=== PATIENT | female | born 1965 ===

== ENCOUNTER 2018-07-20 12:13 | Emergency (ER) | payer OTHER, SELFPAY ==
[2018-07-20 12:19] VITALS: BP 125/75; PULSE 63; RESP 17; TEMP 98.1; O2SAT 99
[2018-07-20] MEDS ORDERED: Sodium Chloride 0.9% 1,000 ML IV STA (12:37)
--- NOTE | 2018-07-20 12:41 | ED PDOC ---
HPI: Female Pain Time Seen by Provider: 07/20/18 12:37 Chief Complaint (Nursing): Female Genitourinary Chief Complaint (Provider): BACK PAIN/ABDOMINAL PAIN History Per: Patient (53 Y/O FEMALE HERE WITH ONGOING LEFT FLANK PAIN RADIATING TO LEFT SIDE LOWER ABDOMEN X 3 WEEKS. NOTES ADDITIONAL SYMPTOMS RIGHT FLANK. DENIES ANY DYSURIA/HEMATURIA/FEVERS/CHILLS.) Past Medical History Reviewed: Historical Data, Nursing Documentation, Vital Signs Vital Signs: Last Vital Signs Temp 98.1 F 07/20/18 12:18 Pulse 63 07/20/18 12:18 Resp 17 07/20/18 12:18 BP 125/75 07/20/18 12:18 Pulse Ox 99 07/20/18 12:18 - Family History Family History: States: No Known Family Hx - Home Medications Home Medications: Ambulatory Orders Medication Instructions Recorded Famotidine [Pepcid] 20 mg PO BID #10 tab 07/20/18 - Allergies Allergies/Adverse Reactions: Allergies Allergy/AdvReac Type Severity Reaction Status Date / Time No Known Allergies Allergy Verified 07/20/18 12:19 Review of Systems ROS Statement: Except As Marked, All Systems Reviewed And Found Negative Gastrointestinal: Positive for: Abdominal Pain Musculoskeletal: Positive for: Back Pain Physical Exam - Reviewed Nursing Documentation Reviewed: Yes Vital Signs Reviewed: Yes - Physical Exam Appears: Positive for: Well, Non-toxic, No Acute Distress Head Exam: Positive for: ATRAUMATIC, NORMAL INSPECTION, NORMOCEPHALIC Skin: Positive for: Normal Color, Warm, DRY Eye Exam: Positive for: EOMI, Normal appearance, PERRL ENT: Positive for: Normal ENT Inspection Neck: Positive for: Normal, Painless ROM Cardiovascular/Chest: Positive for: Regular Rate, Rhythm Respiratory: Positive for: CNT, Normal Breath Sounds Gastrointestinal/Abdominal: Positive for: Normal Exam, Soft, Tenderness (LEFT FLANK/LUQ TENDERNESS. RIGHT UPPER/RIGHT FLANK TENDERNESS.) Back: Positive for: Normal Inspection. Negative for: L CVA Tenderness, R CVA Tenderness Extremity: Positive for: Normal ROM Neurologic/Psych: Positive for: Alert, Oriented - Laboratory Results Result Diagrams: 07/20/18 12:45 07/20/18 12:45 - ECG O2 Sat by Pulse Oximetry: 99 - Progress ED Course And Treament: TORADOL 15MG IV X 1 DOSE NS [address] ABD/PELVIS: IMPRESSION: 1. No radiodense urolithiasis, perinephric fluid collection or obstructive uropathy is appreciate bilaterally. The bilateral ureters appear normal caliber overall. A duplex right renal collecting system is suggested. 2. Otherwise unremarkable abdomen pelvis CT examination with no definite acute f indings. If clinical concern remains then follow-up CT with oral and intravenous contrast is recommended. us pelvic IMPRESSION: Thickened heterogeneous endometrium. Endometrial mass/polyp 0.9 x 1.3 cm. Follow-up strongly recommended. Disposition - Clinical Impression Clinical Impression: Back pain, Abdominal pain - Patient ED Disposition Is Patient to be Admitted: No - Disposition Referrals: [facility] [Outside] [facility] [Outside] Disposition: Routine/Home Disposition Time: 14:16 Condition: FAIR Additional Instructions: DANNY GINA MELANIE CON GYNECOLOGICO PARA CHEQUAR MAS PROFUNDO Prescriptions: Famotidine [Pepcid] 20 mg PO BID #10 tab Instructions: Acute Abdomen (Belly Pain) Forms: [facility] ED School/Work Excuse Print Language: TURKMEN
--- NOTE | 2018-07-20 13:37 | CT ---
Date of service: 07/20/2018 PROCEDURE: CT Abdomen and Pelvis without intravenous contrast HISTORY: R/O RENAL STONE COMPARISON: None. TECHNIQUE: Helical CT of the abdomen and pelvis was performed without oral or intravenous contrast as per referring physician request. Coronal and sagittal reformats were generated.. Contrast dose: None Radiation dose: Total exam DLP = 441.57 mGy-cm. This CT exam was performed using one or more of the following dose reduction techniques: Automated exposure control, adjustment of the mA and/or kV according to patient size, and/or use of iterative reconstruction technique. FINDINGS: LOWER THORAX: Mild cardiomegaly. Limited bilateral basilar subsegmental atelectasis appreciated. Small hiatal hernia. LIVER: Unremarkable. No gross lesion or ductal dilatation. GALLBLADDER AND BILE DUCTS: Unremarkable. PANCREAS: Unremarkable. No gross lesion or ductal dilatation. SPLEEN: Unremarkable. ADRENALS: Unremarkable. No mass. KIDNEYS AND URETERS: Likely duplex right renal collecting system no hydronephrosis. No solid mass. VASCULATURE: Unremarkable. No aortic aneurysm. No aortic atherosclerotic calcification or mural plaque present. BOWEL: Unremarkable. No obstruction. No gross mural thickening. APPENDIX: Nonacute appendix with small appendecolith identified at the mid segment. PERITONEUM: Unremarkable. No free fluid. No free air. LYMPH NODES: Unremarkable. No enlarged lymph nodes. BLADDER: Unremarkable. REPRODUCTIVE: Unremarkable. BONES: No acute fracture. OTHER FINDINGS: None. IMPRESSION: 1. No radiodense urolithiasis, perinephric fluid collection or obstructive uropathy is appreciate bilaterally. The bilateral ureters appear normal caliber overall. A duplex right renal collecting system is suggested. 2. Otherwise unremarkable abdomen pelvis CT examination with no definite acute findings. If clinical concern remains then follow-up CT with oral and intravenous contrast is recommended.
[2018-07-20 13:41] LABS: SQUAMOUS EPITHIAL 1 /hpf (0-5); URINE BACTERIA RARE (<OCC); URINE BILIRUBIN NEGATIVE (NEGATIVE); URINE BLOOD NEGATIVE (NEGATIVE); URINE CLARITY CLEAR (Clear); URINE COLOR YELLOW (YELLOW); URINE GLUCOSE (UA) NEG (NEGATIVE); URINE LEUKOCYTE ESTERASE SMALL Leu/uL (Negative); URINE PROTEIN NEGATIVE (NEGATIVE); URINE UROBILINOGEN 0.2-1.0 mg/dL (0.2-1.0)
[2018-07-20 13:47] LABS: BASO % 0.5 % (0.0-2.0); EOS # 0.2 K/uL (0.0-0.7); EOS % 2.6 % (0.0-4.0); HEMOGLOBIN 14.8 g/dL (12.0-16.0); MEAN CELL VOLUME 86.3 fl (81.0-99.0); MEAN CORPUSCULAR HEMOGLOBIN 29.4 pg (27.0-31.0); MEAN PLATELET VOLUME 9.4 fl (7.2-11.7); MONO # 0.7 K/uL (0.0-0.8); MONO % 8.4 % (0.0-10.0); NEUT # 4.4 K/uL (1.8-7.0); NEUT % 52.5 % (50.0-75.0); NRBC % 0.3 % (0.0-0.0); RBC 5.02 Mil/uL (3.80-5.20); RED CELL DISTRIBUTION WIDTH 13.6 % (11.5-14.5); WHITE BLOOD COUNT 8.4 K/uL (4.8-10.8)
[2018-07-20 13:50] LABS: ALB/GLOB RATIO 1.2 (1.0-2.1); ALBUMIN 4.6 g/dL (3.5-5.0); BLOOD UREA NITROGEN 15 mg/dl (7-17); CALCIUM 9.7 mg/dL (8.4-10.2); GFR NON-AFRICAN AMERICAN > 60; LIPASE 32 U/L (23-300)
[2018-07-20 13:53] LABS: ALT/SGPT 36 U/L (9-52); AST/SGOT 32 U/L (14-36)
--- NOTE | 2018-07-20 17:04 | US ---
Date of service: 07/20/2018 HISTORY: Lower abdominal pain. Menstrual status: Postmenopausal 4 years COMPARISON: None available. TECHNIQUE: Transvaginal only. Real -time technique with 2D, duplex and color Doppler FINDINGS: UTERUS: Measures 3.5 x 4.7 x 6.2 cm. Normal in size and appearance. No fibroid or other mass lesion seen. ENDOMETRIUM: Measures 16.0 mm in diameter. Marked endometrial hypertrophy. Well-circumscribed focal hyperechoic mass 1.3 x 0.9 cm likely endometrial polyp. CERVIX: No cervical abnormality identified. RIGHT OVARY: Measures 1.1 x 1.5 x 2.1 cm. No solid mass. Normal flow. LEFT OVARY: Measures 0.5 x 1.3 x 1.4 cm. No solid mass. Normal flow. FREE FLUID: No significant free fluid noted. OTHER FINDINGS: None. IMPRESSION: Thickened heterogeneous endometrium. Endometrial mass/polyp 0.9 x 1.3 cm. Follow-up strongly recommended.
== END 2018-07-20 17:32 | disposition home or self-care (01) ==
LOC: H.ER 12:13
DX: R10.9 Unspecified abdominal pain (principal); M54.9 Dorsalgia, unspecified; Z78.0 Asymptomatic menopausal state
CPT/HCPCS: 74176; 76830; 80053; 81003; 83690; 85025; 87086; 96374; 99285; J1885; J7030

== ENCOUNTER 2018-09-23 09:25 | Emergency (ER) | payer SELFPAY ==
[2018-09-23 09:29] VITALS: BP 109/77; PULSE 91; RESP 20; TEMP 98.3; O2SAT 99; BMI 27.9
[2018-09-23] MEDS ORDERED: Sodium Chloride 0.9% 1,000 ML IV STA ×2 (09:56→09:59)
--- NOTE | 2018-09-23 10:05 | ED PDOC ---
HPI: Abdomen Chief Complaint (Provider): Epigastric pain with vomiting History Per: Patient History/Exam Limitations: no limitations Onset/Duration Of Symptoms: Hrs (Since last night) Outside of [place] travel?: No Current Symptoms Are (Timing): Still Present Pain Scale Rating Of: 8 Location Of Pain/Discomfort: Epigastric Quality Of Discomfort: Sharp Associated Symptoms: Chills, Nausea, Vomiting, Diarrhea, Loss Of Appetite. denies: Fever, Chest Pain, Urinary Symptoms Exacerbating Factors: None Alleviating Factors: None Last Bowel Movement: Today (Diarrhea - non bloody) Additional Complaint(s): 53 yo female with history of Lupus and H.Pylori presents to the ED because of epigastric pain. Epigastric pain began last night, is non-radiating and described as sharp and constant, 8/10. Associated with 3 episodes of NBNB vomitus, few episodes of non-bloody diarrhea and chills. Sick contact at home, child with diarrhea. Last meal was yesterday at 2 pm and it was white rice with chicken cooked at home. Denies fevers, dysuria, frequency, urgency, chest pain or shortness of breath. LMP: 4 years ago. Of note, patient was started on H.Pylori regimen of Amoxicillin, clarithromycin, and omeprazole last Friday. Denies alcohol use. PMD: [facility]. Social history: Denies smoking history, illicit drug use and alcohol use. Family history: Non-contributory Medical history: Lupus, Gastritis Medications: Amoxicillin, Clarithromycin, omeprazole Abnormal Vaginal Bleeding: No <Jerilyn Coles - Last Filed: 09/23/18 11:36> <Kerri Rock - Last Filed: 09/25/18 12:46> Time Seen by Provider: 09/23/18 09:39 Chief Complaint (Nursing): GI Problem Supervising Attending Note - Supervising Attending Note The Documented history was done by the: Physician Dry Plasterer The documented physical exam was done by the: Physician Dry Plasterer The documented procedures were done by the: Physician Dry Plasterer - Attestation: I have personally seen and examined this patient.: Yes I have fully participated in the care of the patient.: Yes I have reviewed all pertinent clinical information: Yes - Notes: Notes:: Agree with diagnosis and treatment plan. I personally discussed the lab findings and the need for follow up with PMD. <Kerri Rock - Last Filed: 09/25/18 12:46> Past Medical History Vital Signs: Last Vital Signs Temp 98.3 F 09/23/18 09:26 Pulse 91 H 09/23/18 09:26 Resp 20 09/23/18 09:26 BP 109/77 09/23/18 09:26 Pulse Ox 99 09/23/18 09:26 Primary Care Provider: Mike Deleon - Surgical History Surgical History: No Surg Hx - Family History Family History: States: Unknown Family Hx - Living Arrangements Living Arrangements: With Family - Social History Current smoker - smoking cessation education provided: No Ex-Smoker (has not smoked in the last 12 months): No Alcohol: None Drugs: Denies <Jerilyn Coles - Last Filed: 09/23/18 11:36> Vital Signs: Last Vital Signs Temp 98.3 F 09/23/18 09:26 Pulse 91 H 09/23/18 09:26 Resp 20 09/23/18 09:26 BP 109/77 09/23/18 09:26 Pulse Ox 99 09/23/18 11:39 <Kerri Rock - Last Filed: 09/25/18 12:46> - Home Medications Home Medications: Ambulatory Orders Medication Instructions Recorded Famotidine [Pepcid] 20 mg PO BID #10 tab 07/20/18 Famotidine 10 mg PO DAILY #30 tablet 09/23/18 Ondansetron ODT [Zofran ODT] 4 mg PO Q6 PRN #40 odt 09/23/18 - Allergies Allergies/Adverse Reactions: Allergies Allergy/AdvReac Type Severity Reaction Status Date / Time No Known Allergies Allergy Verified 07/20/18 12:19 Review of Systems Constitutional: Positive for: Chills. Negative for: Fever, Sweats Cardiovascular: Negative for: Chest Pain, Palpitations Respiratory: Negative for: Cough, SOB with Exertion Gastrointestinal: Positive for: Nausea, Vomiting, Abdominal Pain, Diarrhea Genitourinary Female: Negative for: Dysuria, Frequency <Jerilyn Coles - Last Filed: 09/23/18 11:36> Physical Exam - Reviewed Vital Signs Reviewed: Yes - Physical Exam Appears: Positive for: Uncomfortable Head Exam: Positive for: NORMAL INSPECTION Skin: Positive for: Normal Color, Warm, Dry ENT: Positive for: Other (Moist mucus membranes) Cardiovascular/Chest: Positive for: Regular Rate, Rhythm (S1 and S2 appreciated on exam.) Respiratory: Positive for: Normal Breath Sounds. Negative for: Decreased Breath Sounds, Accessory Muscle Use, Crackles, Rales, Rhonchi, Stridor, Wheezing, Respiratory Distress Gastrointestinal/Abdominal: Positive for: Bowel Sounds (Hypoactive bowel sounds), Soft (Pannus present), Tenderness (Epigastric tenderness). Negative for: Rebound Extremity: Negative for: Tenderness, Pedal Edema, Calf Tenderness, Swelling Neurological/Psych: Positive for: Awake, Alert <Jerilyn Coles - Last Filed: 09/23/18 11:36> - Laboratory Results Result Diagrams: 09/23/18 10:20 09/23/18 10:20 - ECG O2 Sat by Pulse Oximetry: 99 - Progress ED Course And Treament: 53 yo female with history of Lupus and H.Pylori presents to the ED because of epigastric pain associated with vomiting and diarrhea with one sick contact at home. Differential: Viral gastroenteritis vs. gastritis Plan: -- CBC -- CMP -- Zofran for nausea -- GI cocktail: Viscous lidocaine, Protonix and Famotidine -- 1 L bolus of NS x2 -- Patient reassessed @ 11:30am Improved- reports last episode of vomitus was prior to IV insertion. Reports improvement in Epigastric pain Re-evaluation Time: 11:36 Condition: Re-examined, Improved (Patient reports improvement and last episode of vomitus was prior to insertion of IV. ) <Jerilyn Coles - Last Filed: 09/23/18 11:36> - Laboratory Results Result Diagrams: 09/23/18 10:20 09/23/18 10:20 Lab Results: Total Bilirubin 0.6 mg/dl (0.2-1.3) 09/23/18 10:20 AST 39 U/L (14-36) H D 09/23/18 10:20 ALT 41 U/L (9-52) 09/23/18 10:20 Alkaline Phosphatase 96 U/L (38-126) 09/23/18 10:20 Total Protein 9.2 G/DL (6.3-8.2) H 09/23/18 10:20 Albumin 5.1 g/dL (3.5-5.0) H 09/23/18 10:20 Globulin 4.1 gm/dL (2.2-3.9) H 09/23/18 10:20 Albumin/Globulin Ratio 1.2 (1.0-2.1) 09/23/18 10:20 <Kerri Rock - Last Filed: 09/25/18 12:46> Disposition - Patient ED Disposition Is Patient to be Admitted: No Doctor Will See Patient In The: Office - Disposition Disposition: Routine/Home Disposition Time: 11:37 <Jerilyn Coles - Last Filed: 09/23/18 11:36> <Kerri Rock - Last Filed: 09/25/18 12:46> - Clinical Impression Clinical Impression: Gastroenteritis, Gastroenteritis - Disposition Referrals: Mike Salinas MD [Staff Provider] - Condition: IMPROVED Prescriptions: Famotidine 10 mg PO DAILY #30 tablet Ondansetron ODT [Zofran ODT] 4 mg PO Q6 PRN #40 odt PRN Reason: Nausea/Vomiting Instructions: Gastritis (DC) Forms: [facility] (Swedish), [facility] ED School/Work Excuse Print Language: BRAULIO
[2018-09-23] MEDS ORDERED: Sodium Chloride 0.9% 10 ML IV ONE (10:09)
[2018-09-23 10:36] LABS: BASO % 0.1 % (0.0-2.0); EOS # 0.1 K/uL (0.0-0.7); EOS % 0.9 % (0.0-4.0); HEMOGLOBIN 16.4 g/dL (12.0-16.0); LYMPH # 1.1 K/uL (1.0-4.3); LYMPH % 9.2 % (20.0-40.0); MEAN CELL VOLUME 84.6 fl (81.0-99.0); MEAN CORPUSCULAR HEMOGLOBIN 29.2 pg (27.0-31.0); MEAN CORPUSCULAR HGB CONC 34.6 g/dL (33.0-37.0); MEAN PLATELET VOLUME 9.2 fl (7.2-11.7); MONO # 0.5 K/uL (0.0-0.8); MONO % 4.2 % (0.0-10.0); NEUT # 9.8 K/uL (1.8-7.0); NEUT % 85.6 % (50.0-75.0); PLATELET COUNT 268 K/uL (130-400); RED CELL DISTRIBUTION WIDTH 13.7 % (11.5-14.5); WHITE BLOOD COUNT 11.4 K/uL (4.8-10.8)
[2018-09-23 11:15] LABS: LYMPHOCYTE 9 % (20-50); MONOCYTE 4 % (0-10); NEUTROPHIL 87 % (42-75); PLATELET ESTIMATE NORMAL (NORMAL); TOTAL CELLS COUNTED 100
[2018-09-23 11:16] LABS: ALB/GLOB RATIO 1.2 (1.0-2.1); ALBUMIN 5.1 g/dL (3.5-5.0); ALT/SGPT 41 U/L (9-52); AST/SGOT 39 U/L (14-36); BLOOD UREA NITROGEN 19 mg/dl (7-17); CALCIUM 10.2 mg/dL (8.4-10.2); GFR NON-AFRICAN AMERICAN > 60
== END 2018-09-23 12:00 | disposition home or self-care (01) ==
LOC: H.ER 09:25
DX: R11.2 Nausea with vomiting, unspecified (principal); K52.9 Noninfective gastroenteritis and colitis, unspecified; M32.9 Systemic lupus erythematosus, unspecified; Z87.891 Personal history of nicotine dependence; Z79.899 Other long term (current) drug therapy
CPT/HCPCS: 80053; 85025; 96361; 96374; 96375; 99283; C9113; J2405; J7030